=== PATIENT | female | born 1995 | race Caucasian/White ===

== ENCOUNTER 2019-08-13 21:22 | Emergency (ER) | payer OTHER ==
[~2019-08-13] VITALS: Ht 160 cm; Wt 72.6 kg
[2019-08-13 21:26] VITALS: Ht 160 cm; Wt 72.6 kg
[2019-08-13 22:54] LABS: BASOPHIL % 0.3 % (0-2); PLATELET COUNT 246 x10^3mcL (130-400); RED CELL DISTRIBUTION WIDTH 12.6 % (11.5-14.5)
[2019-08-14 00:44] VITALS: BP 109/63
== END 2019-08-14 00:44 | disposition home or self-care (01) ==
LOC: ED 21:22
PROVIDERS: Emergency Medicine
DX: N93.8 Other specified abnormal uterine and vaginal bleeding (principal); N83.201 Unspecified ovarian cyst, right side
CPT/HCPCS: 36415